=== PATIENT | female | born 2000 | race African-American/Black ===

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

== ENCOUNTER 2022-03-26 11:29 | Emergency (ER) | payer MEDICAID ==
[~2022-03-26] VITALS: Ht 167.6 cm; Wt 101.7 kg
[2022-03-26 12:30] VITALS: BP 106/43
[2022-03-26] MEDS ORDERED: ACET-1158 PO (13:13)
[2022-03-26] MEDS ORDERED: CEPH-509 PO (13:13)
== END 2022-03-26 13:46 | disposition left against medical advice (07) ==
LOC: ER 11:29
DX: S01.81XA Laceration without foreign body of other part of head, initial encounter (principal); Z79.899 Other long term (current) drug therapy; Y04.2XXA Assault by strike against or bumped into by another person, initial encounter; Y93.89 Activity, other specified; Y92.89 Other specified places as the place of occurrence of the external cause; Y99.8 Other external cause status
CPT/HCPCS: 70450; 70486